=== PATIENT | male | born 1940 | race Caucasian/White ===

== ENCOUNTER 2018-08-04 17:10 | Inpatient (IN) | payer MEDICARE ==
[~2018-08-04] VITALS: Ht 182.9 cm; Wt 71.7 kg
--- NOTE | 2018-08-04 18:22 | NUR ---
C/O BILATERAL LOWER EXTREMITIES EDEMA AND REDNESS. PT HAS BEEN SCRATCHING, SOME SKIN BREAKAGE. PT AOX4, VSS, RR EVEN AND UNLABORED ON RA. NO ACUTE DISTRESS NOTED. READY FOR EVAL.
[2018-08-04 18:34] LABS: BASOPHILS # (AUTO) 0.1 /CMM (0.0-0.2); EOSINOPHILS % (AUTO) 3.4 % (0.0-6.0); HEMATOCRIT 32 % (39-51); LYMPHOCYTES # (AUTO) 0.9 /CMM (0.8-4.8); LYMPHOCYTES % (AUTO) 14.1 % (20.0-44.0); MEAN CORPUSCULAR HGB CONC 34 g/dl (31.0-36.0); MEAN CORPUSCULAR VOLUME 95 fL (80-96); MONOCYTES # (AUTO) 0.7 /CMM (0.1-1.30); MONOCYTES % (AUTO) 11.1 % (2.0-12.0); NEUTROPHILS # (AUTO) 4.5 /CMM (1.8-8.9); NEUTROPHILS % (AUTO) 70.4 % (43.0-81.0); PLATELET COUNT (AUTO) 171 /CMM (150-450); RED BLOOD CELL COUNT(AUTO) 3.42 MIL/uL (4.5-6.0); WHITE BLOOD COUNT (AUTO) 6.4 K/uL (4.3-11.0)
[2018-08-04 18:42] LABS: CALCIUM, SERUM 8.3 mg/dL (8.5-10.1); CARBON DIOXIDE 26 mmol/L (21-32); CHLORIDE 108 mmol/L (98-107); CREATININE 1.1 mg/dL (0.6-1.3); GLUCOSE 95 mg/dL (74-106); POTASSIUM 4.1 mmol/L (3.5-5.1); SODIUM SERUM 141 mmol/L (136-145); UREA NITROGEN, BLOOD 24 mg/dL (7-18)
[2018-08-04 18:54] LABS: ALANINE AMINOTRANSFERASE 37 U/L (12-78); ALBUMIN 3.5 g/dL (3.4-5.0); ALKALINE PHOSPHATASE 91 U/L (46-116); ASPARTATE AMINOTRANSFERASE 51 U/L (15-37); B-TYPE NATRIURETIC PEPTIDE 320 PG/ML (0-125); BILIRUBIN,DIRECT 0.1 mg/dL (0.0-0.2); BILIRUBIN,TOTAL 0.5 mg/dL (0.2-1.0); TOTAL PROTEIN, SERUM 6.5 g/dL (6.4-8.2)
[2018-08-04] MEDS ORDERED: VANCOMYCIN 1 GM in IV D5W 250 ML IV ONE (19:00)
[2018-08-04] MEDS ORDERED: PIPERACILLIN /TAZOBACTAM 3.375 G in IV D5W 50 ML IV ONE (19:00)
[2018-08-04] MEDS ORDERED: PIPERACILLIN /TAZOBACTAM 3.375 G VIAL IV ONE (19:06)
[2018-08-04] MEDS ORDERED: VANCOMYCIN 1 GM VIAL ONE (19:06)
--- NOTE | 2018-08-04 19:08 | NUR ---
POLICY OFFICER JOE AT BEDSIDE
--- NOTE | 2018-08-04 19:40 | NUR ---
EPIC PAGED FOR POSSIBLE ADMISSIONS
--- NOTE | 2018-08-04 20:07 | NUR ---
ADMIT TO 307-2 DX LEFT LEG CELLULITIS MED SURG ACCEPTING DER[facility]YAN
--- NOTE | 2018-08-04 20:23 | NUR ---
REPORT GIVEN TO POLA FOR 307-2 MS
--- NOTE | 2018-08-04 20:24 | NUR ---
IV ABX WILL CONT TO INFUSE TO FLOOR
--- NOTE | 2018-08-04 20:39 | NUR ---
[facility]
[2018-08-04 20:45] VITALS: BP 136/68
--- NOTE | 2018-08-04 20:52 | NUR ---
RN ADMITTING NOTES RECEIVED REPORT FROM ASSISTANT OPERATIONS MANAGER ELAINE. Pt ARRIVED TO THE FLOOR VIA ER GURNEY; Pt WAS ABLE TO AMBULATE TO THE ROOM BED WITH CANE AND STAND BY ASSIST. NO S/S OF ACUTE DISTRESS OR SOB NOTED. Pt IS A/OX3, VERBAL, ABLE TO MAKE NEEDS KNOWN. Pt HAS RECENTLY BEEN DIAGNOSED WITH DEMENTIA. Pt IS ABLE TO RECALL NAME, CURRENT YEAR & MONTH, & KNOWS HE IS IN SOME TYPE OF HOSPITAL, BUT COULD NOT RECALL WHICH CITY. IV ACCESS ON RAC #20G. SAFETY MEASURES IN PLACE. BED LOW, LOCKED, HOB ELEVATED, SIDE RAILS UP, CALL LIGHT AND BEDSIDE TABLE WITHIN REACH. WILL CONTINUE TO MONITOR Pt's CONDITION AND SAFETY THROUGHOUT THE NIGHT.
--- NOTE | 2018-08-04 21:15 | NUR ---
RN NOTES PER Pt STATEMENT, SAID HE TAKES MEDICATION FOR HIS DEMENTIA BUT UNABLE TO RECALL WHAT THE NAME OF THE MEDICATION IS CALLED. WAS ONLY ABLE TO RECALL HIS KEPPRA MED, BUT UNCERTAIN OF DOSAGE. Pt SAID HE GOT THE MEDS BACK IN [place], WHERE HIS SON LIVES.
[2018-08-04] MEDS ORDERED: HYDROCODONE/APAP 5/325MG 1 EACH TABLET PO PRN (21:30)
[2018-08-04] MEDS ORDERED: Z GUARD REMEDY 2 OZ OINT TP PRN (21:30)
[2018-08-04] MEDS ORDERED: ONDANSETRON HCL/PF 4 MG/2 ML VIAL IVP PRN (21:30)
[2018-08-04] MEDS ORDERED: ACETAMINOPHEN 325 MG TABLET PO PRN (21:30)
[2018-08-04] MEDS ORDERED: ZOLPIDEM TARTRATE 5 MG TABLET PO PRN (21:30)
[2018-08-04] MEDS ORDERED: MAGNESIUM HYDROXIDE 30 ML UDC PO PRN (21:30)
[2018-08-04] MEDS ORDERED: MAG HYDROX/AL HYDROX/SIMETH 30 ML UDC PO PRN (21:30)
[2018-08-04] MEDS ORDERED: CEFTRIAXONE 1 G VIAL ONE (22:49)
[2018-08-04] MEDS: CEFTRIAXONE 1 G in IV D5W 50 ML IV SCH (22:52)
[2018-08-04] MEDS: FUROSEMIDE 40 MG/4 ML VIAL IV SCH (22:53)
[2018-08-05] MEDS: IV NS 0.9% 1,000 ML IV PRN ×2 (01:14→17:09)
[2018-08-05] MEDS ORDERED: LEVE500T9 PO (05:18)
--- NOTE | 2018-08-05 06:42 | NUR ---
RN CLOSING NOTES NO SIGNIFICANT CHANGES IN Pt's CONDITION DURING THE NIGHT. Pt REMAINS STABLE PER BASELINE. NO S/S OF ACUTE DISTRESS OR SOB NOTED DURING THE SHIFT. ALL NEEDS MET AND ATTENDED TO. Pt RESTING IN BED. RESPIRATIONS EVEN AND UNLABORED. SAFETY MEASURES IN PLACE. BED LOW, LOCKED, HOB ELEVATED SIDE RAILS UP, CALL LIGHT AND BEDSIDE TABLE WITHIN REACH. BED ALARM ON. WILL ENDORSE TO DAYSHIFT RN FOR Pt's SIXTO.
[2018-08-05 06:43] LABS: BASOPHILS % (AUTO) 0.9 % (0.0-2.0); EOSINOPHILS % (AUTO) 5.7 % (0.0-6.0); HEMATOCRIT 36 % (39-51); HEMOGLOBIN 12.2 g/dL (13.5-17.5); LYMPHOCYTES # (AUTO) 1.1 /CMM (0.8-4.8); LYMPHOCYTES % (AUTO) 20.1 % (20.0-44.0); MEAN CORPUSCULAR HGB CONC 34 g/dl (31.0-36.0); MEAN CORPUSCULAR VOLUME 93 fL (80-96); MONOCYTES # (AUTO) 0.7 /CMM (0.1-1.30); NEUTROPHILS # (AUTO) 3.3 /CMM (1.8-8.9); NEUTROPHILS % (AUTO) 60.3 % (43.0-81.0); PLATELET COUNT (AUTO) 182 /CMM (150-450); RED BLOOD CELL COUNT(AUTO) 3.82 MIL/uL (4.5-6.0); WHITE BLOOD COUNT (AUTO) 5.4 K/uL (4.3-11.0)
[2018-08-05 06:49] LABS: ALANINE AMINOTRANSFERASE 42 U/L (12-78); ALBUMIN 3.4 g/dL (3.4-5.0); ALKALINE PHOSPHATASE 86 U/L (46-116); ASPARTATE AMINOTRANSFERASE 50 U/L (15-37); BILIRUBIN,TOTAL 0.5 mg/dL (0.2-1.0); CALCIUM, SERUM 8.6 mg/dL (8.5-10.1); CARBON DIOXIDE 28 mmol/L (21-32); CHLORIDE 106 mmol/L (98-107); CREATININE 1.1 mg/dL (0.6-1.3); GLUCOSE 88 mg/dL (74-106); MAGNESIUM 1.8 mg/dL (1.8-2.4); PHOSPHORUS 3.4 mg/dL (2.5-4.9); POTASSIUM 3.8 mmol/L (3.5-5.1); SODIUM SERUM 143 mmol/L (136-145); TOTAL PROTEIN, SERUM 6.6 g/dL (6.4-8.2); UREA NITROGEN, BLOOD 21 mg/dL (7-18)
[2018-08-05 06:52] LABS: CHOLESTEROL 126 mg/dL (<200); HDL CHOLESTEROL 63 mg/dL (40-60); LDL 62 mg/dL (0-99); TRIGLYCERIDES 40 mg/dL (30-150)
[2018-08-05] MEDS ORDERED: FEE PK DOSING 1 MIN EA MC ONE (07:37)
--- NOTE | 2018-08-05 07:40 | NUR ---
MS RN RECEIVED ON BED, AWAKE,ALERT,ORIENTED X4,NOT IN ANY FORM OF DISTRESS, RESPIRATIONS EVEN AND UNLABORED,NO SOB NOTED, LUNGS ARE DIMINISHED, ABDOMEN SOFT,POSITIVE BOWEL SOUNDS, DENIES PAIN AT THIS TIME,ALL NEEDS ATTENDED.
[2018-08-05 08:00] VITALS: BP 123/67
[2018-08-05] MEDS: VANCOMYCIN 0.75 GM in IV D5W 250 ML IV SCH ×2 (09:02→20:00)
[2018-08-05] MEDS: FUROSEMIDE 40 MG/4 ML VIAL IV SCH (09:02)
[2018-08-05] MEDS: ENOXAPARIN SODIUM 40 MG/0.4 ML DISP.SYRIN SQ SCH (09:04)
--- NOTE | 2018-08-05 09:20 | NUR ---
MS MESSINA BREAKFAST SERVED,DUE MEDS GIVEN,TOLERATED WELL.
--- NOTE | 2018-08-05 09:55 | NUR ---
MS RN WAS SEEN BY , WILL WAIT FOR ORDERS.
--- NOTE | 2018-08-05 11:00 | NUR ---
MS RN WAS SEEN BY DR. GUSTAFSON WITH ORDERS MADE AND CARRIED OUT.
[2018-08-05] MEDS: LEVETIRACETAM (250 MG) 250 MG TABLET PO SCH ×2 (12:26→17:09)
--- NOTE | 2018-08-05 12:30 | NUR ---
ms rn was seen by dr. strickland, was asked about med list but cannot find it.
--- NOTE | 2018-08-05 14:08 | NUR ---
Social service consult requested by Dr. Mckeon for homelessness. Pt. is a 77 year old male who was admitted to [facility] for B/L lower leg cellulitis. SW met with pt. bedside. Pt. is alert and oriented x 4. Pt. is very pleasant and cooperative with SW. Pt. appears well-groomed. Pt. ambulates with a walker. Pt. states he recently from his and has been living in a motel. Pt. has a son who resides in [place]. Pt. was visiting the son recently. Pt. receives approximately $2600 in [employer] money per month. Pt. is interested in going to a half-way if deemed appropriate or to a Board and care facility. Pt. is willing to pay $1500 per month for rent. Pt's emergency contact is his son Eloy, however pt. did not remember his phone number and informed SW he will get it for her. Pt. denies any alcohol or drug abuse. Pt. is a non-smoker. Pt. drinks a glass of wine per month. Pt. states he feels depressed and anxious about what is going to happen about his living situation. SW provided active listening and emotional support. SW informed pt. case management will assist him in finding placement. No other social service needs are required at this time. SW is available, if needed. OSIEL updated rn case management Isaac Escamilla regarding possible placement options for the pt. if deemed appropriate.
--- NOTE | 2018-08-05 14:35 | NUR ---
rn a new iv site inserted at right forearm w/ good venous return.
[2018-08-05 16:00] VITALS: BP 122/64
--- NOTE | 2018-08-05 18:20 | NUR ---
ms rn ordered and antifungal cream for patel lower les.
[2018-08-05 20:00] VITALS: BP 118/60
[2018-08-05] MEDS: CLOTRIMAZOLE/BETAMETASONE DIPROPIONATE 15 GM TUBE TP SCH (20:17)
--- NOTE | 2018-08-05 20:29 | NUR ---
RN MS OPENING NOTES RECEIVED PT IN BED, AWAKE, ALERT ORIENTED X4, BREATHING EVEN AND UNLABORED ON ROOM AIR. NO COMPLAINT OF PAIN OR DISCOMFORT AT THIS TIME, IV ACCESS ON THE R FA G22. WITH NS @75ML/HR. URINAL AT BEDSIDE. BED IN LOWEST LOCKED POSITION, CALL LIGHT WITHIN REACH AT ALL TIMES WILL CONTINUE TO MONITOR
[2018-08-05] MEDS: CEFTRIAXONE 1 G in IV D5W 50 ML IV SCH (21:10)
--- NOTE | 2018-08-06 06:07 | NUR ---
RN MS CLOSING NOTES PT REMAINS IN BED, SLEEPING, EASILY AROUSED TO NAME CALL, BREATHING EVEN AND UNLABORED ON ROOM AIR. NO COMPLAINT OF PAIN OR DISCOMFORT AT THIS TIME, IV ACCESS ON THE R FA G22. WITH NS @75ML/HR. URINAL AT BEDSIDE. BED IN LOWEST LOCKED POSITION, CALL LIGHT WITHIN REACH AT ALL TIMES WILL ENDORSE TO DAY NURSE
--- NOTE | 2018-08-06 07:15 | NUR ---
MS RN Opening Notes Patient asleep, resting in bed. Semi-Fowlers position. Alert and oriented x4, able to make needs known. No complaints of shortness of breath, chest pain or pain at this time. Respirations even and unlabored on room air, no acute distress noted. Peripheral IV to the right forearm 22 gauge, intact, patent and infusing fluids as ordered. Updated patient on current plan of care and safety measures. Patient verbalized understanding. Safety and fall precautions in place: bed in lowest and locked position, side rails up x2, bed alarm on, call light and personal possessions within reach. Will continue to monitor and intervene as needed.
[2018-08-06 07:36] LABS: CALCIUM, SERUM 8.7 mg/dL (8.5-10.1); CARBON DIOXIDE 28 mmol/L (21-32); CHLORIDE 106 mmol/L (98-107); GLUCOSE 96 mg/dL (74-106); POTASSIUM 4.2 mmol/L (3.5-5.1); SODIUM SERUM 140 mmol/L (136-145); UREA NITROGEN, BLOOD 21 mg/dL (7-18)
[2018-08-06 08:00] VITALS: BP 121/58
--- NOTE | 2018-08-06 08:45 | NUR ---
WOUND CARE CONSULT WOUND CARE RECEIVED CONSULT FOR TOM LOWER EXT CELLULITIS. WOUND CARE WILL DEFER CONSULT AND TREATMENT PLAN TO DPM DR SMITH WHO IS CURRENTLY FOLLOWING THIS PATIENT. PATIENT WITH SHANTHI AT 17, ALL PRESSURE ULCER PREVENTION MEASURES ARE NOTED TO BE IN PLACE. WILL SEE PRN.
[2018-08-06] MEDS: LEVETIRACETAM (250 MG) 250 MG TABLET PO SCH ×2 (09:01→17:00)
[2018-08-06] MEDS: VANCOMYCIN 0.75 GM in IV D5W 250 ML IV SCH (09:01)
[2018-08-06] MEDS: FUROSEMIDE 40 MG/4 ML VIAL IV SCH (09:01)
[2018-08-06] MEDS: CLOTRIMAZOLE/BETAMETASONE DIPROPIONATE 15 GM TUBE TP SCH ×2 (09:02→17:33)
[2018-08-06] MEDS: ENOXAPARIN SODIUM 40 MG/0.4 ML DISP.SYRIN SQ SCH (09:03)
[2018-08-06] MEDS: IV NS 0.9% 1,000 ML IV PRN (09:07)
[2018-08-06 16:00] VITALS: BP 107/50
[2018-08-06] MEDS: LACTOBACILLUS RHAMNOSUS GG 1 EACH CAP.SPRINK PO SCH (17:34)
--- NOTE | 2018-08-06 18:13 | NUR ---
MS RN Closing Notes Patient awake, resting in bed. Semi-Fowlers position. Alert and oriented x3, able to make needs known. Some episodes of forgetfulness/poor recall. No complaints of shortness of breath, chest pain or pain at this time. Respirations even and unlabored on room air, no acute distress noted. Peripheral IV to the right forearm 22 gauge, intact, patent and infusing fluids as ordered. Updated patient on current plan of care and safety measures. Patient verbalized understanding. Safety and fall precautions in place: bed in lowest and locked position, side rails up x2, bed alarm on, call light and personal possessions within reach. Will endorse to oil fire specialist RN for continuity of care.
--- NOTE | 2018-08-06 19:30 | NUR ---
MS MARIPOSA INITIAL NOTES RECEIVED REPORT FROM AM NURSE AND SEEN PT IN BED AWAKE AND ALERT SITTING ON HIS BED WHILE WATCHING TV AT THIS TIME. NOTICED BILATERAL LOWER LEGS MULTIPLE SCABS WITH REDNESS AND EDEMA NOTED. OFFLOAD BILATERAL LOWER LEGS ON PILLOWS. IVF STILL INFUSING ON HIS RIGHT FOREARM PATENT AND INTACT. DENIES ANY PAIN OR ANY DISCOMFORT. KEPT HIM WARM AND COMFORTABLE AT ALL TIMES. PLACE CALL LIGHT AT REACH. OFFERED SNACKS FOR LATER AND PT ASKING FOR SANDWICH .
[2018-08-06 20:00] VITALS: BP 102/47
[2018-08-06] MEDS: VANCOMYCIN 1 GM in IV D5W 250 ML IV SCH (20:48)
--- NOTE | 2018-08-06 21:00 | NUR ---
RN NOTES IV SITE IN THE RIGHT FOREARM IS LEAKING. VANCO IS HELD UNTIL NEW IV SITE IS ESTABLISHED.
--- NOTE | 2018-08-06 21:38 | NUR ---
MS MONGE NOTES' NEW IV LINE INSERTED RIGHT FOREARM GAUGE 22 AND VANCOMYCIN IVP BAG INFUSING NOW. NO ADVERSE REACTION NOTED AT THIS TIME. WILL CONTINUE MONITORING. PLACE CALL LIGHT AT REACH.
[2018-08-06] MEDS: CEFTRIAXONE 1 G in IV D5W 50 ML IV SCH (22:47)
--- NOTE | 2018-08-07 01:57 | NUR ---
APPLICATIONS SALES CONSULTANT NOTES PT SLEEPING COMFORTABLY IN BED WITHOUT ANY ACUTE DISTRESS NOTED. KEPT HIM WARM AND COMFORTABLE AT ALL TIMES. WILL CONTINUE MONITORING.
[2018-08-07 06:49] LABS: CALCIUM, SERUM 8.2 mg/dL (8.5-10.1); CARBON DIOXIDE 27 mmol/L (21-32); CHLORIDE 106 mmol/L (98-107); GLUCOSE 100 mg/dL (74-106); POTASSIUM 4.4 mmol/L (3.5-5.1); SODIUM SERUM 138 mmol/L (136-145); UREA NITROGEN, BLOOD 30 mg/dL (7-18)
--- NOTE | 2018-08-07 07:23 | NUR ---
MS JOURNAL CLERK CLOSING NOTES PT AWAKE AT THIS TIME WATCHING TV AT THIS TIME. STABLE PABLO THE NIGHT AND SLEPT WELL. RESPIRATION EVEN AND UNLABORED NOT IN ANY ACUTE DISTRESS NOTED. KEPT HIM WARM AND COMFORTABLE AT ALL TIMES. BED IN SEMI FOWLERS POSITION WITH SIDE RAILS X2 UP AND PLACE CALL LIGHT AT REACH. ENDORSE TO AM NURSE FOR CONTINUITY OF CARE.
--- NOTE | 2018-08-07 07:59 | NUR ---
MS RN NOTES PATIENT RESTING INSIDE ROOM. AWAKE, ALERT AND ORIENTED, VERBALLY RESPONSIVE AND RESPONDS TO VERBAL AND TACTILE STIMULI. BREATHING EVEN AND UNLABORED. NO CHANGES IN LOC NOTED AT THIS TIME. PATIENT CALM AND RELAXED. DENIES ANY PAIN OR DISCOMFORT AT THIS TIME. IVF INFUSING WELL. VERIFIED WITH PATIENT THAT HE IS ALLERGIC TO NUTS (PEANUTS, ETC.), UNABLE TO SPECIFY REACTION BUT SAID THAT HE KNOWS HE IS ALLERGIC TO NUTS. WILL CONTINUE TO MONITOR. BED LOCKED AND IN LOW POSITION. BILATERAL UPPER SIDE RAILS UP AND LOCKED. CALL LIGHT WITHIN EASY REACH
[2018-08-07 08:33] VITALS: BP 111/50
[2018-08-07] MEDS: LACTOBACILLUS RHAMNOSUS GG 1 EACH CAP.SPRINK PO SCH (08:54)
[2018-08-07] MEDS: LEVETIRACETAM (250 MG) 250 MG TABLET PO SCH (08:54)
[2018-08-07] MEDS: FUROSEMIDE 40 MG/4 ML VIAL IV SCH (08:54)
[2018-08-07] MEDS: CLOTRIMAZOLE/BETAMETASONE DIPROPIONATE 15 GM TUBE TP SCH (08:56)
[2018-08-07] MEDS: VANCOMYCIN 1 GM in IV D5W 250 ML IV SCH (08:56)
[2018-08-07] MEDS: ENOXAPARIN SODIUM 40 MG/0.4 ML DISP.SYRIN SQ SCH (08:57)
--- NOTE | 2018-08-07 14:12 | NUR ---
MS RN NOTES PATIENT WITH DISCHARGE ORDER. PATIENT AWARE AND VERBALIZED UNDERSTANDING. [phone][facility] AND GAVE REPORT TO DAPHNE MESSINA.
--- NOTE | 2018-08-07 15:30 | NUR ---
MS RN NOTES PATIENT DISCHARGED TODAY. LEFT UNIT AT 1520 IN STABLE CONDITION. NO NEW SKIN BREAKDOWN NOTED. BELONGINGS TAKEN FROM SAFE AND GIVEN TO PATIENT, NO REPORT OF MISSING INVENTORY. MD AWARE OF DISCHARGE
--- NOTE | 2018-08-07 15:34 | NUR ---
M/S RN NOTES PATIENT DISCHARGED TODAY. PT GIVEN DISCHARGE INSTRUCTIONS AND EDUCATION, PT VERBALIZED UNDERSTANDING. PATIENT'S BELONGINGS COUNTED AND COMPLETE. NO INVENTORY MISSING. PATIENT IN STABLE CONDITION, NO SIGNS OF DISTRESS OR COMPLAINTS OF PAIN. IV REMOVED AND APPLIED DRESSING. PT ASSISTED BY 2 ACCOUNT LIAISON VIA ALISSA. PT LEFT THE UNIT AT 1520
== END 2018-08-07 15:22 | DRG 602 ==
LOC: ER 17:10 → MED 20:11
PROVIDERS: ADMIT Internal Medicine
DX: L03.115 Cellulitis of right lower limb (principal); N17.0 Acute kidney failure with tubular necrosis; L03.116 Cellulitis of left lower limb; D63.8 Anemia in other chronic diseases classified elsewhere; G40.909 Epilepsy, unspecified, not intractable, without status epilepticus; F03.90 Unspecified dementia, unspecified severity, without behavioral disturbance, psychotic disturbance, mood disturbance, and anxiety; Z86.73 Personal history of transient ischemic attack (TIA), and cerebral infarction without residual deficits; Z96.642 Presence of left artificial hip joint; I10 Essential (primary) hypertension; Z59.0 Homelessness; I34.0 Nonrheumatic mitral (valve) insufficiency
CPT/HCPCS: 36415; 71045-TC; 80048-TC; 80053-TC; 80061-TC; 80076-TC; 80202-TC; 83735-TC; 83880; 84100-TC; 85025-TC; 87081-TC; 93307-TC; 93970-TC; A6403; G0378; J0696; J1650; J1940; J2543; J3370; J7030; J7060